=== PATIENT | male | born 1955 | race Two or more races ===

== ENCOUNTER 2021-01-01 09:04 | Outpatient (CLI) | payer OTHER | END 2021-01-01 09:05 | disposition home or self-care (01) | LOC: LAB 09:04 | DX: U07.1 COVID-19 (principal) ==

== ENCOUNTER 2021-02-24 07:11 | Outpatient (CLI) | payer OTHER | END 2021-02-24 18:50 | disposition home or self-care (01) | LOC: LAB 07:11 | PROVIDERS: ATTEND Emergency Medicine Pediatric Emergency Medicine | DX: Z03.818 Encounter for observation for suspected exposure to other biological agents ruled out (principal) ==

== ENCOUNTER → 2021-03-10 08:46 | Outpatient (CLI) | payer OTHER | END | disposition home or self-care (01) | LOC: LAB 08:46 | PROVIDERS: ATTEND Emergency Medicine Pediatric Emergency Medicine | DX: Z03.818 Encounter for observation for suspected exposure to other biological agents ruled out (principal) ==

== ENCOUNTER → 2021-03-24 07:31 | Outpatient (CLI) | payer OTHER | END | disposition home or self-care (01) | LOC: LAB 07:31 | PROVIDERS: ATTEND Emergency Medicine Pediatric Emergency Medicine | DX: Z03.818 Encounter for observation for suspected exposure to other biological agents ruled out (principal) ==